=== PATIENT | male | born 1970 | race Caucasian/White ===

== ENCOUNTER 2018-02-04 16:38 | Emergency (ER) | payer MEDICAID ==
[~2018-02-04] VITALS: Ht 185.4 cm; Wt 99.8 kg
[2018-02-04 16:45] VITALS: BP 143/89
[2018-02-04] MEDS ORDERED: KETOROLAC TROMETH 60MG/2ML VIAL IM ONE (19:30)
== END 2018-02-04 20:10 | disposition home or self-care (01) ==
LOC: ER 16:43
DX: S90.821A Blister (nonthermal), right foot, initial encounter (principal); X58.XXXA Exposure to other specified factors, initial encounter; Y93.89 Activity, other specified; Y92.89 Other specified places as the place of occurrence of the external cause; Y99.8 Other external cause status
CPT/HCPCS: 73610; 73630; 96372; 99284; J1885

== ENCOUNTER 2018-03-09 09:34 | Emergency (ER) | payer MEDICAID ==
[~2018-03-09] VITALS: Ht 185.4 cm; Wt 104.3 kg
[2018-03-09 09:44] VITALS: BP 172/107
== END 2018-03-09 10:53 | disposition home or self-care (01) ==
LOC: ER 09:36
DX: M72.2 Plantar fascial fibromatosis (principal); F17.210 Nicotine dependence, cigarettes, uncomplicated

== ENCOUNTER 2020-03-29 08:00 | Emergency (ER) | payer MEDICAID ==
[~2020-03-29] VITALS: Ht 188 cm; Wt 81.6 kg
[2020-03-29 08:47] VITALS: BP 137/86
[2020-03-29] MEDS ORDERED: TETANUS-DIPTH-ACEL PERTUSSIS 0.5ML SYR Tdap IM ONE (09:00)
== END 2020-03-29 09:22 | disposition home or self-care (01) ==
LOC: ER 08:00
DX: S91.332A Puncture wound without foreign body, left foot, initial encounter (principal); F17.210 Nicotine dependence, cigarettes, uncomplicated; W26.8XXA Contact with other sharp object(s), not elsewhere classified, initial encounter; Y93.89 Activity, other specified; Y92.89 Other specified places as the place of occurrence of the external cause; Y99.8 Other external cause status
CPT/HCPCS: 90471; 90715

== ENCOUNTER 2023-09-25 10:08 | Emergency (ER) | payer MEDICAID ==
[~2023-09-25] VITALS: Ht 185.4 cm; Wt 77.8 kg
[2023-09-25 10:27] VITALS: BP 123/74; PULSE 7; RESP 16; O2SAT 99
== END 2023-09-25 18:39 | disposition left against medical advice (07) ==
LOC: ER 10:08
DX: M79.645 Pain in left finger(s) (principal); Z53.21 Procedure and treatment not carried out due to patient leaving prior to being seen by health care provider

== ENCOUNTER 2023-10-02 08:08 | Emergency (ER) | payer MEDICAID ==
[~2023-10-02] VITALS: Ht 185.4 cm; Wt 77.2 kg
[2023-10-02 08:18] VITALS: BP 123/87; PULSE 80; RESP 18; O2SAT 100
== END 2023-10-02 09:56 | disposition home or self-care (01) ==
LOC: ER 08:08
DX: M79.642 Pain in left hand (principal); I10 Essential (primary) hypertension; F17.210 Nicotine dependence, cigarettes, uncomplicated; F10.90 Alcohol use, unspecified, uncomplicated; Y90.0 Blood alcohol level of less than 20 mg/100 ml

== ENCOUNTER 2024-05-23 14:58 | Inpatient (IN) | payer MEDICAID ==
[~2024-05-23] VITALS: Ht 188 cm; Wt 82.3 kg
[2024-05-23] MEDS: SODIUM CHLORIDE 0.9% 1,000 ML IV ONE ×3 (15:15→19:44)
[2024-05-23 16:27] LABS: Basophils # (auto) 0 10 ^3/uL (0-0.2); Basophils % (auto) 0.2 % (0.0-2.0); Eosinophils # (auto) 0 10 ^3/uL (0-0.8); Eosinophils % (auto) 0.4 % (0.0-7.0); Hematocrit 40.5 % (41.0-53.0); Hemoglobin 14.8 g/dL (13.5-17.5); Lymphocytes % (auto) 8.4 % (10.0-50.0); Mean Corpuscular Hemoglobin 32.7 pg (28.0-32.0); Mean Corpuscular Hgb Conc. 36.4 g/dL (32.0-36.0); Mean Corpuscular Volume 89.7 fL (80.0-100.0); Monocytes # (auto) 0.9 10 ^3/uL (0-1.3); Monocytes % (auto) 7.4 % (0.0-12.0); Neutrophils # (auto) 9.9 10 ^3/uL (1.6-8.6); Neutrophils % (auto) 83.6 % (37.0-80.0); Red Blood Cells 4.52 10^6/uL (4.5-5.90); White Blood Cell 11.9 10^3/uL (4.4-10.8)
[2024-05-23 16:40] LABS: Chloride 84 mmol/L (98-107); Potassium 2.9 mmol/L (3.5-5.1)
[2024-05-23 16:41] LABS: Anion Gap 5 (5-15); Calcium 9.3 mg/dL (8.7-10.4); Carbon Dioxide 26 mmol/L (20-30)
[2024-05-23 16:46] LABS: BUN/Creatinine Ratio 14.6 (10.0-20.0); Blood Urea Nitrogen 7 mg/dL (9-23); Glucose 110 mg/dL (74-106)
[2024-05-23 16:58] LABS: Creatine Kinase IFCC 2007 U/L (46-171)
[2024-05-23 17:27] LABS: Sodium 115 mmol/L (136-145)
[2024-05-23 17:57] VITALS: PULSE 61; RESP 16; O2SAT 96
[2024-05-23 17:57] LABS: Urine Bacteria None Seen /hpf (None Seen); Urine WBC None Seen /hpf (0 - 3)
[2024-05-23 18:36] LABS: Urine Blood Negative /uL (Negative); Urine Clarity Clear (Clear); Urine Color Colorless (Yellow); Urine Protein, UAD Negative (Negative); Urine Specific Gravity 1.002 (1.001-1.035); Urine Urobilinogen Normal (Negative); Urine pH 7.5 (5.0-9.0)
[2024-05-23 19:42] LABS: Alanine Aminotransferase 138 U/L (7-40); Albumin 4.2 g/dL (3.2-4.8); Alkaline Phosphatase 63 U/L (46-116); Anion Gap 6 (5-15); Aspartate Aminotransferase 113 U/L (13-40); BUN/Creatinine Ratio 21.6 (10.0-20.0); Bilirubin, Total 1.3 mg/dL (0.2-1.0); Blood Urea Nitrogen 11 mg/dL (9-23); Calcium 9.2 mg/dL (8.5-10.1); Carbon Dioxide 27 mmol/L (20-30); Chloride 83 mmol/L (98-107); Glucose 104 mg/dL (74-106); Potassium 3.1 mmol/L (3.5-5.1); Total Protein 6.2 g/dL (5.7-8.2)
[2024-05-23] MEDS: POTASSIUM EFFERVESENT TAB 25 MEQ PO ONE (19:44)
[2024-05-23 19:53] LABS: Sodium 116 mmol/L (136-145)
[2024-05-23] MEDS: SODIUM CHLORIDE 0.9% 1,000 ML IV SCH (22:00)
[2024-05-23] MEDS ORDERED: ACETAMINOPHEN 325 MG TAB PO PRN (22:00)
[2024-05-23] MEDS ORDERED: ONDANSETRON HCL 4 MG/2 ML VIAL IV PRN (22:00)
[2024-05-23] MEDS ORDERED: NITROGLYCERIN 0.4 MG SL TAB SL PRN (22:30)
[2024-05-23] MEDS ORDERED: MORPHINE SULFATE INJ 2 MG/ml SYRG IV PRN (22:30)
[2024-05-23] MEDS: levETIRAcetam 500 MG TAB PO SCH (22:50)
[2024-05-24 02:35] VITALS: BP 116/65; PULSE 68; RESP 18; RESP 19; TEMP 98.2; O2SAT 94
[2024-05-24] MEDS ORDERED: LISI10TA34 PO (02:52)
[2024-05-24] MEDS ORDERED: LEVE250T18 PO (02:52)
[2024-05-24] MEDS ORDERED: HYDR12.59 PO (02:52)
[2024-05-24] MEDS: SODIUM CHLORIDE 0.9% 1,000 ML IV SCH (04:48)
[2024-05-24 05:00] VITALS: BP 96/65; PULSE 64; RESP 18; TEMP 97.7; O2SAT 97
[2024-05-24 06:15] LABS: Alanine Aminotransferase 103 U/L (7-40); Albumin 3.8 g/dL (3.2-4.8); Alkaline Phosphatase 55 U/L (46-116); Anion Gap 6 (5-15); Aspartate Aminotransferase 78 U/L (13-40); Blood Urea Nitrogen 7 mg/dL (9-23); Calcium 9.1 mg/dL (8.7-10.4); Carbon Dioxide 24 mmol/L (20-30); Chloride 105 mmol/L (98-107); Glucose 89 mg/dL (74-106); Potassium 3.8 mmol/L (3.5-5.1)
[2024-05-24 06:16] LABS: Bilirubin, Total 0.9 mg/dL (0.2-1.0); Total Protein 5.9 g/dL (5.7-8.2)
[2024-05-24 06:33] LABS: Sodium 135 mmol/L (136-145)
[2024-05-24 08:29] VITALS: BP 120/63; PULSE 68; RESP 17; TEMP 98.6; O2SAT 96
[2024-05-24] MEDS ORDERED: amLODIPine BESYLATE 5 MG TAB PO SCH (10:00)
[2024-05-24] MEDS ORDERED: LISINOPRIL 5 MG TAB PO SCH (10:00)
== END 2024-05-24 08:35 | disposition left against medical advice (07) | DRG 351 ==
LOC: ER 14:58 → TELE-WESTW 22:27 → TELE 22:27 → TELE-WESTW 05-24 02:25
PROVIDERS: ADMIT Nurse Practitioner; ATTEND Nurse Practitioner
DX: M62.82 Rhabdomyolysis (principal); G93.41 Metabolic encephalopathy; E87.1 Hypo-osmolality and hyponatremia; Z53.29 Procedure and treatment not carried out because of patient's decision for other reasons; I10 Essential (primary) hypertension; F17.210 Nicotine dependence, cigarettes, uncomplicated; X58.XXXA Exposure to other specified factors, initial encounter; Y93.89 Activity, other specified; Y92.89 Other specified places as the place of occurrence of the external cause; Y99.8 Other external cause status
CPT/HCPCS: 36415; 70450; 71045; 80048; 80053; 81001; 82550; 83930; 83935; 84295; 84484; 85025; 86803; 87340; 93005; 99291; G0378

== ENCOUNTER 2024-07-17 20:13 | Emergency (ER) | payer MEDICAID ==
[~2024-07-17] VITALS: Ht 188 cm; Wt 82.0 kg
[~2024-07-17 20:13] MED LIST: HYDR12.59 PO; LEVE250T18 PO; LISI10TA34 PO
[2024-07-17 20:25] VITALS: BP 146/82
[2024-07-17 20:56] VITALS: PULSE 77
[2024-07-17 21:20] LABS: Basophils # (auto) 0 10 ^3/uL (0-0.2); Eosinophils # (auto) 0 10 ^3/uL (0-0.8); Hemoglobin 14.3 g/dL (13.5-17.5); Lymphocytes # (auto) 0.9 10 ^3/uL (0.4-5.4); Mean Corpuscular Volume 90.9 fL (80.0-100.0); Red Cell Distribution Width 14.2 % (11.8-14.3)
[2024-07-17 21:22] LABS: Basophils % (auto) 0.4 % (0.0-2.0); Eosinophils % (auto) 0.2 % (0.0-7.0); Hematocrit 39.5 % (41.0-53.0); Lymphocytes % (auto) 11.4 % (10.0-50.0); Mean Corpuscular Hemoglobin 32.9 pg (28.0-32.0); Mean Corpuscular Hgb Conc. 36.2 g/dL (32.0-36.0); Monocytes % (auto) 12.9 % (0.0-12.0); Neutrophils # (auto) 5.9 10 ^3/uL (1.6-8.6); Neutrophils % (auto) 75.1 % (37.0-80.0); Platelet Count (auto) 259 10^3/uL (140-450); Red Blood Cells 4.35 10^6/uL (4.5-5.90); White Blood Cell 7.8 10^3/uL (4.4-10.8)
[2024-07-17 21:38] LABS: Alanine Aminotransferase 27 U/L (7-40); Albumin 4.5 g/dL (3.2-4.8); Alkaline Phosphatase 62 U/L (46-116); Anion Gap 7 (5-15); Aspartate Aminotransferase 22 U/L (13-40); BUN/Creatinine Ratio 9.7 (10.0-20.0); Blood Alcohol 3.5 mg/dL (<10); Blood Urea Nitrogen 6 mg/dL (9-23); Calcium 9.6 mg/dL (8.7-10.4); Carbon Dioxide 24 mmol/L (20-30); Chloride 89 mmol/L (98-107); Glucose 127 mg/dL (74-106); Magnesium 1.7 mg/dL (1.6-2.6); Potassium 2.7 mmol/L (3.5-5.1); Sodium 120 mmol/L (136-145)
[2024-07-17 21:39] LABS: Bilirubin, Total 1.4 mg/dL (0.2-1.0); Total Protein 7.2 g/dL (5.7-8.2)
[2024-07-17 21:48] LABS: INR 1.08 (0.9-1.15); Partial Thromboplastin Time 28.2 SEC (24.5-34.5); Prothrombin Time 11.4 sec (9.3-11.8)
[2024-07-17] MEDS: ALBUTEROL SULF 2.5 MG/0.5ML(0.5%) NEB SOLN NEB ONE (22:15)
[2024-07-17 22:18] VITALS: RESP 16; O2SAT 99
== END 2024-07-18 02:29 | disposition home or self-care (01) ==
LOC: ER 20:13 → EDBD 20:13 → ER 07-18 02:28
DX: F79 Unspecified intellectual disabilities (principal); I10 Essential (primary) hypertension; R56.9 Unspecified convulsions; F17.210 Nicotine dependence, cigarettes, uncomplicated; W18.09XA Striking against other object with subsequent fall, initial encounter; Y93.89 Activity, other specified; Y92.89 Other specified places as the place of occurrence of the external cause; Y99.8 Other external cause status
CPT/HCPCS: 36415; 70450; 71045; 80053; 80320; 83735; 83880; 84484; 85025; 85610; 85730; 93005; 94640

== ENCOUNTER 2024-07-20 07:34 | Emergency (ER) | payer MEDICAID ==
[~2024-07-20] VITALS: Ht 185.4 cm; Wt 78.2 kg
[2024-07-20 08:06] VITALS: BP 134/76; PULSE 85; RESP 16; TEMP 97; O2SAT 100
[2024-07-20] MEDS: ACETAMINOPHEN 500 MG TAB PO ONE (08:21)
[2024-07-20] MEDS ORDERED: IBUP-1456 PO (09:10)
== END 2024-07-20 09:18 | disposition home or self-care (01) ==
LOC: ER 07:34
DX: S82.492A Other fracture of shaft of left fibula, initial encounter for closed fracture (principal); S93.692A Other sprain of left foot, initial encounter; I10 Essential (primary) hypertension; F17.210 Nicotine dependence, cigarettes, uncomplicated; F10.90 Alcohol use, unspecified, uncomplicated; Z79.899 Other long term (current) drug therapy; W22.8XXA Striking against or struck by other objects, initial encounter; Y93.89 Activity, other specified; Y92.89 Other specified places as the place of occurrence of the external cause; Y99.8 Other external cause status; Y90.0 Blood alcohol level of less than 20 mg/100 ml
CPT/HCPCS: 29515; 73610; 73630

== ENCOUNTER 2025-01-31 08:35 | Emergency (ER) | payer MEDICAID ==
[~2025-01-31] VITALS: Ht 185.4 cm; Wt 79.0 kg
[~2025-01-31 08:35] MED LIST changes: +IBUP-1456 PO
[2025-01-31 09:52] VITALS: BP 110/77; PULSE 89; RESP 20; TEMP 97.5; O2SAT 98
--- NOTE | 2025-01-31 10:10 | ED.PDOC ---
Eye-HPI HPI Comments A 54 YEAR OLD MALE PRESENTS TO THE ED WITH CHIEF COMPLAINT OF LIP/LEFT SIDED MOUTH SWELLING. PATIENT REPORTS THAT HE HAD WOKEN UP THIS MORNING WITH LIP SWELLING AND LEFT SIDED MOUTH SWELLING. PATIENT RELAYS THAT HE DOES NOT HAVE ANY PAIN AT THIS TIME. PATIENT STATES HE HAD EATEN FISH LAST NIGHT. PATIENT DENIES ANY NUMBNESS, THROAT SWELLING, DENTAL PAIN, OR SOB. NO OTHER SYMPTOMS REPORTED AT THIS TIME OF CARE. Chief Complaint: Face pain Time Seen by MD: 10:04 Primary Care Provider: Baudilio ENAMORADO Reviewed Notes: Nurses Notes, Medications, Allergies Allergies: Coded Allergies: NO KNOWN ALLERGIES (Unverified , 09/13/11) Home Meds Active Scripts Prednisone (Prednisone) 20 Mg Tab, 60 MG PO DAILY, #18 TAB Prov:GUTIERREZ WEISS 01/31/25 Ibuprofen (Ibuprofen) 800 Mg Tab, 1 TAB PO TID, #30 TAB Prov:GUTIERREZ WEISS 07/20/24 Reported Medications Hydrochlorothiazide (Hydrochlorothiazide) 12.5 Mg Cap, 12.5 MG PO DAILY for 30 Days, MG 05/24/24 Levetiracetam (Keppra) 250 Mg Tab, 250 MG PO for 30 Days, MG 05/24/24 Lisinopril (Lisinopril) 10 Mg Tab, 10 MG PO DAILY for 30 Days, MG 05/24/24 Information Source: Patient Mode of Arrival: Ambulatory Timing: Hours Duration: Since onset Prehospital treatment: None Quality: Red Lids: Normal Conjunctiva: Normal Cornea: Normal Pupils: Normal EOM: Normal Fundus: Normal Slit lamp exam: Normal Mouth Location: Left, Lower, Gums, Lips Onset: Spontaneous Throat Exposed to: None History of: None Associated signs and symptoms: Other (MOUTH SWELLING) Past Medical History PAST MEDICAL HISTORY: HTN, Seizures Surgical History: Denies all surgeries Family History Family History: Reviewed,noncontributory to illness, No family hx of Cancer, No family hx of Heart scott Social History Smoker: Cigarettes, Less Than 1 Pack/Day Alcohol: Heavy Drugs: Denies Drug Use Lives In: Home Constitutional: denies: chills, diaphoresis, fatigue, fever, malaise, sweats, weakness, others EENTM: reports: others (LIP SWELLING, LEFT SIDED MOUTH/FACIAL SWELLING); denies: blurred vision, double vision, ear bleeding, ear discharge, ear drainage, ear pain, ear ringing, eye pain, eye redness, hearing loss, mouth pain, mouth swelling, nasal discharge, nose bleeding, nose congestion, nose pain, photophobia, tearing, throat pain, throat swelling, voice changes Respiratory: denies: cough, hemoptysis, orthopnea, SOB at rest, shortness of breath, SOB with excertion, stridor, wheezing, others Cardiovascular: denies: chest pain, dizzy spells, diaphoresis, Dyspnea on exertion, edema, irregular heart beat, left arm pain, lightheadedness, palpitations, PND, syncope, others Gastrointestinal: denies: abdomen distended, abdominal pain, blood streaked bowels, constipated, diarrhea, dysphagia, difficulty swallowing, hematemesis, melena, nausea, poor appetite, poor fluid intake, rectal bleeding, rectal pain, vomiting, others Genitourinary: denies: burning, dysuria, flank pain, frequency, hematuria, incontinence, penile discharge, penile sore, pain, testicle pain, testicle swelling, urgency, others Neurological: denies: dizziness, fainting, headache, left sided numbness, left sided weakness, numbness, paresthesia, pre-existing deficit, right sided numbness, right sided weakness, seizure, speech problems, tingling, tremors, weakness, others Musculoskeletal: denies: back pain, gout, joint pain, joint swelling, muscle pain, muscle stiffness, neck pain, others Integumetry: denies: bruises, change in color, change in hair/nails, dryness, laceration, lesions, lumps, rash, wounds, others Allergic/Immunocompromised: denies: Difficulty Healing, Frequent Infections, Hives, Itching, others Hematologic/Lymphatic: denies: anemia, blood clots, easy bleeding, easy bruising, swollen glands, others Endocrine: denies: excessive hunger, excessive sweating, excessive thirst, excessive urination, flushing, intolerance to cold, intolerance to heat, unexplained weight gain, unexplained weight loss, others Psychiatric: denies: anxiety, bipolar disorder, depression, hopeless, panic disorder, schizophrenia, sleepless, suicidal, others All Other Systems: Reviewed and Negative Physical Exam General Appearance: No Apparent Distress, Normal HEENT: Normal ENT Inspection, PERRL/EOMI, Pharynx Normal, Other (REDNESS AND SWELLING ON UPPER LIP AND LEFT LOWER FACE, NO TENDERNESS AND INFECTION, NO DENTAL AND GUM INFECTION. ) Neck: Full Range of Motion, Non-Tender, Normal, Normal Inspection Respiratory: Chest Non-Tender, Lungs Clear, No Accessory Muscle Use, No Respir atory Distress, Normal Breath Sounds Cardiovascular: No Edema, No JVD, No Murmur, No Gallop, Normal Peripheral Pulses, Regular Rate/Rhythm Breast Exam: Deferred Gastrointestinal: No Organomegaly, Non Tender, No Pulsatile Mass, Normal Bowel Sounds, Soft Genitalia: Deferred Pelvic: Deferred Rectal: Deferred Extremities: No calf tenderness, Normal capillary refill, Normal inspection, Normal range of motion, Non-tender, No pedal edema Musculoskeletal : Apperance: Normal Neurologic: Alert, risk prevention engineer II-XII nml as Tested, No Motor Deficits, Normal Affect, Normal Mood, No Sensory Deficits Cerebellar Function: Normal Reflexes: Normal Skin: Dry, Warm, Other (ERYTHEMA AND SWELLING ON UPPER LIP. ) Peripheral Pulses: 2+ carotid (R), 2+ carotid (L) Lymphatic: No Adenopathy Was a procedure done? Was a procedure done?: No EENT DIFF Eye: Other Ear: Dental, Pharyngitis, Sinusitis Mouth: Thrush, Other (ALLERGIC REACTION ) X-Ray, Labs, Meds, VS Vital Signs Date Time Temp Pulse Resp B/P (MAP) Pulse Ox O2 Delivery O2 Flow Rate FiO2 01/31/25 09:52 97.5 89 20 110/77 (88) 98 97.5 01/31/25 09:52 89 20 98 Room Air 01/31/25 09:04 97.5 89 20 110/77 (88) 98 01/31/25 09:04 20 98 Room Air* 0 21 Current Medications Medications (Trade) Dose Ordered Sig/Bobby Route Start Time Stop Time Status Last Admin Methylprednisolone Sodium Succinate (Solu Medrol) 125 mg ONCE ONCE IM 01/31/25 10:15 01/31/25 10:16 DC 01/31/25 10:14 Epinephrine HCl 0.3 mg ONCE ONCE SC 01/31/25 10:15 01/31/25 10:16 DC 01/31/25 10:16 X-Ray, Labs, Meds, VS Comment EXTERNAL MEDICAL RECORDS REVIEWED: 07/20/24 FOR FRACTURE INDEPENDENT HISTORIANS: [NONE] SOCIAL DETERMINANTS OF HEALTH: [NONE] LABS ORDERED: NONE REVIEWED AND INTERPRETED RESULTS: NONE IMAGING ORDERED: NONE TREATMENTS ORDERED: EPINEPHRINE 0.3MG SUBQ, SOLU-MEDROL 125MG IM, ICE PACK APPLIED TO UPPER LIP. SWELLING AND REDNESS DECREASED. PROCEDURES PERFORMED: NONE CRITICAL CARE TIME: NONE I HAVE DISCUSSED THE PATIENT WITH THE ATTENDING PHYSICIAN DR. CARR AND HE AGREES WITH THE PATIENT'S PLAN OF CARE AND DISPOSITION. BASED ON HISTORY OF PRESENT ILLNESS, AND PHYSICAL EXAM, PATIENT WILL BE DISCHARGED HOME. DISCUSSED PLAN FOR DISCHARGE HOME WITH RX. MEDICATION WARNINGS GIVEN. SHARED DECISION MAKING: DISCUSSED WITH PATIENT THAT THEIR WORKUP WAS NORMAL. PATIENT INSTRUCTED TO FOLLOW UP WITH PRIMARY CARE PROVIDER IN 1-2 DAYS FOR RE-EVALUATION OF SYMPTOMS. PATIENT VERBALIZES UNDERSTANDING TO RETURN TO ED FOR NEW OR WORSENING SYMPTOMS OR IF FOLLOW UP WITH PCP CANNOT BE OBTAINED. PATIENT FEELS COMFORTABLE GOING HOME AT THIS TIME. ALL QUESTIONS ADDRESSED AT TIME OF DISCHARGE. Time of 1ST Reevaluation: 10:44 Reevaluation 1ST: Unchanged Patient Education/Counseling: Diagnosis, Treatment Family Education/Counseling: No Family Present Departure 1 Departure Time of Disposition: 10:44 Impression: Primary Impression: Allergic reaction Qualified Codes: T78.40XA - Allergy, unspecified, initial encounter Disposition: 01 HOME / SELF CARE / HOMELESS Condition: Stable Additional Instructions: FOLLOW-UP WITH PCP IN 1 TO 2 DAYS. TAKE MEDICATIONS PRESCRIBED. RETURN TO ED FOR ANY NEW OR WORSENING SYMPTOMS. e-Prescriptions Prednisone (Prednisone) 20 Mg Tab 60 MG PO DAILY, #18 TAB Prov: GUTIERREZ WEISS 01/31/25 Discharged With: Self Critical Care Note Critical Care Time?: No Stability Stability form required: No Heart Score Heart Score: Heart Score Response (Comments) Value History N/A 0 EKG N/A 0 Age N/A 0 Risk Factors N/A 0 Troponin N/A 0 Total 0 I personally scribed for GUTIERREZ WEISS ([email or web address]) on 01/31/25 at 10:10. Electronically submitted by Ricco Cordova ([email or web address]). GUTIERREZ WEISS Jan 31, 2025 10:10
[2025-01-31] MEDS: methylPREDNISolone SOD SUCC 125 MG/2 ML VL IM ONE (10:14)
[2025-01-31] MEDS: EPINEPHrine HCL 1 MG/1 ML AMP SC ONE (10:16)
[2025-01-31] MEDS ORDERED: PRED20TA2 PO (10:37)
== END 2025-01-31 10:45 | disposition home or self-care (01) ==
LOC: ER 08:35
DX: T78.40XA Allergy, unspecified, initial encounter (principal); I10 Essential (primary) hypertension; F17.210 Nicotine dependence, cigarettes, uncomplicated; Z79.1 Long term (current) use of non-steroidal anti-inflammatories (NSAID); Z79.52 Long term (current) use of systemic steroids; Z79.899 Other long term (current) drug therapy; X58.XXXA Exposure to other specified factors, initial encounter
CPT/HCPCS: 96372; 99284; J0171; J2919